=== PATIENT | male | born 1990 | race African-American/Black ===

== ENCOUNTER 2023-12-04 12:29 | Emergency (ER) | payer OTHER ==
[~2023-12-04] VITALS: Ht 188 cm; Wt 91.0 kg
[2023-12-04 12:31] VITALS: BP 114/61; TEMP 97.4; O2SAT 99
[2023-12-04 12:34] VITALS: PULSE 89; RESP 18
== END 2023-12-04 15:41 | disposition left against medical advice (07) ==
LOC: ER 12:29
DX: M25.572 Pain in left ankle and joints of left foot (principal)
CPT/HCPCS: 99283

== ENCOUNTER 2023-12-04 14:32 | Emergency (ER) | payer OTHER | END 2023-12-04 15:20 | disposition left against medical advice (07) | LOC: ER 14:32 | DX: R68.89 Other general symptoms and signs (principal); Z53.21 Procedure and treatment not carried out due to patient leaving prior to being seen by health care provider ==